=== PATIENT | female | born 1990 | race Caucasian/White ===

== ENCOUNTER 2017-11-03 20:40 | Inpatient (IN) | payer OTHER ==
[2017-11-03 21:20] LABS: APPEARANCE,URINE SLIGHTLY-CLOUDY; BILIRUBIN,URINE NEGATIVE (NEGATIVE); COLOR,URINE YELLOW; GLUCOSE, URINE NEGATIVE (NEGATIVE); KETONES,URINE NEGATIVE (NEGATIVE); LEUKOCYTE ESTERASE,URINE TRACE (NEGATIVE); NITRITE,URINE NEGATIVE (NEGATIVE); PROTEIN,URINE NEGATIVE (NEGATIVE)
[2017-11-03] MEDS ORDERED: MAG HYDROX/AL HYDROX/SIMETH SUSP 30 ML UDCUP PO PRN (21:22)
[2017-11-03] MEDS ORDERED: DINOPROSTONE 10 MG VAGINAL INSERT.SR PV ONE (21:22)
[2017-11-03] MEDS ORDERED: RINGERS SOLUTION,LACTATED 300 ML IV ONE (21:22)
[2017-11-03] MEDS ORDERED: RINGERS SOLUTION,LACTATED 1,000 ML IV PRN (21:22)
[2017-11-03] MEDS ORDERED: ACETAMINOPHEN 325 MG TABLET PO PRN (21:22)
[2017-11-03] MEDS ORDERED: ZOLPIDEM TARTRATE 5 MG TABLET PO PRN (21:22)
[2017-11-03] MEDS ORDERED: DINOPROSTONE 10 MG VAGINAL INSERT.SR ONE (21:39)
[2017-11-03 21:40] LABS: URINE AMPHETAMINES SCREEN NEGATIVE; URINE BARBITURATES SCREEN NEGATIVE; URINE BENZODIAZEPINES SCREEN NEGATIVE; URINE COCAINE SCREEN NEGATIVE; URINE MARIJUANA (THC) SCREEN NEGATIVE; URINE METHADONE SCREEN NEGATIVE; URINE PHENCYCLIDINE SCREEN NEGATIVE
[2017-11-03 21:49] LABS: ABSOLUTE EOSINOPHILS # (AUTO) 0.1 10^3/uL (0.0-0.6); ABSOLUTE LYMPHOCYTES (AUTO) 1.7 10^3/uL (0.5-4.7); ABSOLUTE MONOCYTES (AUTO) 0.6 10^3/uL (0.1-1.4); ABSOLUTE NEUT (AUTO) 8.9 10^3/uL (1.7-8.2); BASOPHILS % (AUTO) 0.2 % (0-2); EOSINOPHILS % (AUTO) 0.7 % (0-6); HEMATOCRIT 33.7 % (36.0-47.0); HEMOGLOBIN 11.1 g/dL (12.0-15.5); LYMPHOCYTES % (AUTO) 15.1 % (13-45); MEAN CORPUSCULAR HEMOGLOBIN 26.3 pg (27.0-33.4); MEAN CORPUSCULAR HGB CONC 32.9 g/dL (32.0-36.0); MEAN CORPUSCULAR VOLUME 80 fl (80-97); MONOCYTES % (AUTO) 5.6 % (3-13); PLATELET COUNT 196 10^3/uL (150-450); RED BLOOD COUNT 4.21 10^6/uL (3.72-5.28); RED CELL DISTRIBUTION WIDTH 15.6 % (11.5-14.0); SEGMENTED NEUTROPHILS % (AUTO) 78.4 % (42-78); TOTAL CELLS COUNTED % (AUTO) 100 %; WHITE BLOOD COUNT 11.4 10^3/uL (4.0-10.5)
[2017-11-04] MEDS ORDERED: ZOLPIDEM TARTRATE 5 MG TABLET ONE (01:20)
--- NOTE | 2017-11-04 07:03 | Admission Physical ---
Datetime Report Generated by CPN: 11/04/2017 07:03 CURRENT ADMISSION Chief Complaint: Scheduled Induction of Labor Indication for Induction: Maternal Diabetes Indication for Induction- Other: On Metformin Admit Impression : Term, Intrauterine ; Induction of Labor Admit Plan: Admit to Unit; Initiate Labor Induction Protocol ALLERGIES Medication Allergies: No Medication Allergies: No Known Allergies (11/03/2017) Latex: No Latex Allergies Food Allergies: none Environmental Allergies: none OBSTETRICAL HISTORY EDC: 11/06/2017 00:00 : 1 Para: 0 Term: 0 : 0 SAB: 0 IAB: 0 Ectopic: 0 Livin Cesareans: 0 VBACs: 0 Multiple Births: 0 Gestational Diabetes: Yes Rh Sensitization: No Incompetent Cervix: No EASTON: No Infertility: No ART Treatment: No Uterine Anomaly: No IUGR: No Hx Previous C/S: No Macrosomia: No Hx Loss/Stillborn: No PIH: No Hx : No Placenta Previa/Abruption: No Depression/PP Depression: No PTL/PROM: No Post Hemorrhage: No Current Procedures: Ultrasound; NST Obstetrical History Comments: G1- current GDM on metformin SEE RECORDS Alcohol: No Marijuana : No Cocaine: No Other Illicit Drugs: No Cigarettes: Never Smoker. [id number] MEDICAL HISTORY Diabetes: Yes Diabetes Type: Gestational Diabetes Blood Transfusion: No Pulmonary Disease (Asthma, TB): No Breast Disease: No Hypertension: No Sprayer Hand Surgery: No Heart Disease: No Hosp/Surgery: Yes Autoimmune Disorder: No Anesthetic Complications: No Kidney Disease: Yes Abnormal Pap Smear: No Neuro/Epilepsy: No Psychiatric Disorders: No Other Medical Diseases: Yes Hepatitis/Liver Disease: No Significant Family History: No Varicosities/Phlebitis: No Trauma/Violence : No Thyroid Dysfunction: No Medical History Comments: hospitalized for kidney stones in 2013, right hip stress fx 2010; GDM-on Metformin; Factor V Leiden INFECTIOUS HISTORY Gonorrhea: No Genital Herpes: No Chlamydia: No Tuberculosis: No Syphilis: No Hepatitis: No HIV/AIDS Exposure: No Rash or Viral Illness: No HPV: No PHYSICAL EXAM General: Normal HEENT: Normal Neurologic: Normal Thyroid: Normal Heart: Normal Lungs: Normal Breast: Normal Back: Normal Abdomen: Normal Genitourinary Exam: Normal Extremities: Normal DTRs: Normal Pelvic Type: Adequate Vital Signs: Reviewed; Within Normal Limits VAGINAL EXAM Dilatation: 2 Effacement: 50 Station: -3 MEMBRANES Pooling: Negative Membranes: Intact FETUS A EGA: 39.5 Monitoring: External US FHR- Baseline: 125 Variability: Moderate 6-25bpm Accelerations: 15X15 FHR Category: Category I Estimated Weight (gm): 3700 Presentation: Vertex PLANS FOR LABOR AND DELIVERY Labor and Delivery: None Pain Management: Medications; Epidural Feeding Preference: Breast Benefit of Breast Feed Discussed: Yes Circumcision: Yes INFORMED CONSENT Signature: with User ID: [email or web address]
--- NOTE | 2017-11-04 10:53 | L&D Progress Notes ---
PROGRESS NOTES Datetime Report Generated by CPN: 11/04/2017 10:53 PROGRESS NOTE Impression: Reassuring Heart Rate Plan: Continue Present Management; Induction Informed Consent Obtained: Vaginal Delivery Vital Signs : Reviewed; Within Normal Limits Comment: Cervidil out, eating and walking in halls, Cat 1 strip, irreg uc's, discussed Pitocin and epidural VAGINAL EXAM Dilatation: 2 Effacement: 50 Station: -3 MEMBRANES Pooling: Negative Membranes: Intact FETUS A Decelerations: None : 39.5 Estimated Weight (gm): 3700 Presentation: Vertex SIGNATURE SIGNATURE: [id number] SIGNATURE: [id number] SIGNATURE: ,[id number] Assignment: Jose Bravo MD Signature: with User ID: [email or web address] : with User ID: [email or web address]
[2017-11-04] MEDS ORDERED: OXYTOCIN/NORMAL SALINE 20 UNIT/1,000 ML RTUINJ IV PRN ×2 (11:47→21:44)
--- NOTE | 2017-11-04 11:50 | L&D Progress Notes ---
PROGRESS NOTES Datetime Report Generated by CPN: 11/04/2017 11:50 PROGRESS NOTE Impression: Normal Progression of Labor; Reassuring Heart Rate Procedures: Sterile Vag Exam Plan: Continue Present Management; Induction; Anticipate Vaginal Delivery Vital Signs : Reviewed Comment: VE = 4-5/80/vtx/-2, bulging BOW, start Pitocin, AROM when head down to 0 station. Plan of care discussed, family at , [facility] epidural FETUS A Monitoring: External US Decelerations: None FHR Category: Category I FETUS C SIGNATURE: [id number] Assignment: Jose Bravo MD Signature: with User ID: [email or web address] : with User ID: [email or web address]
[2017-11-04] MEDS ORDERED: LIDOCAINE 1% INJ-PF (10 MG/ML) 30 ML SDV ONE (11:51)
[2017-11-04] MEDS ORDERED: MISOPROSTOL 0.2 MG TABLET ONE (11:51)
[2017-11-04] MEDS ORDERED: PENICILLIN G-K 5 MILLION UNIT VIAL ONE ×3 (11:52→20:21)
[2017-11-04] MEDS ORDERED: OXYTOCIN/NORMAL SALINE 20 UNIT/1,000 ML RTUINJ ONE ×2 (11:52→12:10)
[2017-11-04] MEDS ORDERED: LIDOCAINE 1.5%/EPINEPHRINE INJ-PF 30 ML SDV ONE (16:30)
[2017-11-04] MEDS ORDERED: EPHEDRINE SULFATE INJ 50 MG/1 ML AMPULE ONE (16:30)
[2017-11-04] MEDS ORDERED: FENTANYL/BUPIVACAINE/NS/PF 300 MCG/150 ML RTUINJ EPI ONE (16:30)
[2017-11-04] MEDS ORDERED: BUPIVACAINE HCL 0.25 % INJ/PF (2.5 MG/1 ML) 30 ML VIAL ONE (16:30)
[2017-11-04] MEDS ORDERED: DIBUCAINE 1% OINTMENT 28 GM TP PRN (21:44)
[2017-11-04] MEDS ORDERED: PROMETHAZINE HCL INJ 25 MG/1 ML VIAL IV PRN (21:44)
[2017-11-04] MEDS ORDERED: GLYCERIN/WITCH HAZEL LEAF 1 EACH MED..PAD TP PRN (21:44)
[2017-11-04] MEDS ORDERED: PSEUDOEPHEDRINE HCL 30 MG TABLET PO PRN (21:44)
[2017-11-04] MEDS ORDERED: PROMETHAZINE HCL 25 MG SUPP.RECT PR PRN (21:44)
[2017-11-04] MEDS ORDERED: BENZOCAINE/MENTHOL AEROSOL SPRAY 56 ML TOP PRN (21:44)
[2017-11-04] MEDS ORDERED: ACETAMINOPHEN WITH CODEINE #3 TABLET PO PRN (21:44)
[2017-11-04] MEDS ORDERED: ACETAMINOPHEN 650 MG SUPP.RECT PR PRN (21:44)
[2017-11-04] MEDS ORDERED: MAGNESIUM HYDROXIDE SUSP 30 ML UDCUP PO PRN (21:44)
[2017-11-04] MEDS ORDERED: PROMETHAZINE HCL 25 MG TABLET PO PRN (21:44)
[2017-11-04] MEDS ORDERED: ZOLPIDEM TARTRATE 5 MG TABLET PO PRN (21:44)
[2017-11-04] MEDS ORDERED: NA PHOS,M-B/NA PHOS,DI-BA (ADULT) 133 ML ENEMA PR PRN (21:44)
[2017-11-04] MEDS ORDERED: DIPHENHYDRAMINE HCL 25 MG CAPSULE PO PRN (21:44)
[2017-11-04] MEDS ORDERED: MEASLES,MUMPS&RUBELLA VACC/PF 0.5 ML VIAL SUBCUT PRN (21:44)
[2017-11-04] MEDS ORDERED: DIPH/PERTUSS(ACELL)/TETANUS VAC/PF 0.5 ML SYR (>=10YO) IM PRN (21:44)
--- NOTE | 2017-11-04 21:47 | PDOC DELIVERY SUMMARY ---
Delivery Summary - Maternal Ruptured Membranes: SROM Fluids: Meconium Stained - Delivery Labor: Induction Presentation: Vertex Uterine Contraction Monitoring: External Support Person Present: Yes
--- NOTE | 2017-11-04 22:11 | Warning Signs in Babies ---
VOD Warning Signs Datetime Report Generated by [facility]: 11/04/2017 22:11 VOD#608 -Warning Signs in Babies: Viewed with Parent(s)/Family (10/22/2017 12:54:Indira Mahoney RN)
[2017-11-04] MEDS ORDERED: ENOXAPARIN SODIUM INJ 40 MG/0.4 ML DISP.SYRIN SUBCUT ONE (23:30)
--- NOTE | 2017-11-04 23:59 | Delivery Summary ---
Del Sum A-C Datetime Report Generated by CPN: 11/04/2017 23:59 DELIVERY PERSONNEL DELIVERY PERSONNEL: [id number] Delivery Doctor:: Jose Bravo MD Labor and Delivery Nurse:: Indira Mahoney RN Nursery Nurse:: OPAL Lew Care Services Manager/ADMINISTRATIVE ASSOCIATE: Jeannie Gates ST Care Services Manager/ADMINISTRATIVE ASSOCIATE: Lalita Detom, ICD 9 CODER MATERNAL INFORMATION Delivery Anesthesia: Epidural Medications After Delivery: Pitocin Bolus-Please Comment; Pitocin Drip 20 Units/1000ml NSS Maternal Complications: None LABOR SUMMARY EDC: 11/06/2017 00:00 No. Babies in Womb: 1 Attempted: No Labor Anesthesia: Epidural LABOR INFORMATION Reason for Induction: Maternal Diabetes Onset of Labor: 11/04/2017 11:42 Complete Dilatation: 11/04/2017 20:06 Cervical Ripening Agents: Cervidil Oxytocin: Induction Group B Beta Strep: POSITIVE Antibiotics # of Doses: 4 Antibiotics Time of Last Dose: 2022 Name of Antibiotic Given: PENICILLIN G Steroids Given: None Reason Steroids Not Administered: Not Applicable MEMBRANES Membranes Rupture Method: Artificial Rupture of Membranes: 11/04/2017 18:32 Length of Rupture (hr): 3.05 Amniotic Fluid Color: Clear Amniotic Fluid Amount: Copious Amniotic Fluid Odor: None STAGES OF LABOR Stage 1 hr: 8 Stage 1 min: 24 Stage 2 hr: 1 Stage 2 min: 29 Stage 3 hr: 0 Stage 3 min: 3 Total Time in Labor hr: 9 Total Time in Labor min: 56 VAGINAL DELIVERY Episiotomy: None Laceration #1: Vaginal Laceration Extension #1: N/A Laceration Repair: Not Applicable Laceration Repair Note: small laceration no repair needed Sponge Count Correct: N/A Sharps Count Correct: N/A CSECTION DELIVERY Primary Indication: N/A Secondary Indication: N/A CSection Incidence: N/A Labor: N/A Elective: N/A CSection Incision: N/A BABY A INFORMATION Infant Delivery Date/Time: 11/04/2017 21:35 Method of Delivery: Vaginal Born in Route : No : N/A Forceps: N/A Vacuum Extraction: N/A Shoulder Dystocia : No PRESENTATION/POSITION BABY A Presentation: Cephalic Cephalic Presentation: Vertex Breech Presentation: N/A PLACENTA INFORMATION BABY A Placenta Delivery Time : 11/04/2017 21:38 Placenta Method of Delivery: Spontaneous Placenta Status: Delivered SCORES BABY A Heart Rate 1 min: >100 bpm Resp Effort 1 min: Slow, Irregular Reflex Irritability 1 min: Cough or Sneeze or Pulls Away Muscle Tone 1 min: Active Motion Color 1 min: Blue/Pale SCORE 1 MIN: 7 Heart Rate 5 min: >100 bpm Resp Effort 5 min: Good Cry Reflex Irritability 5 min: Cough or Sneeze or Pulls Away Muscle Tone 5 min: Active Motion Color 5 min: Body [place], Extremities Blue SCORE 5 MIN: 9 INFANT INFORMATION BABY A Gestational Age at Delivery: 39.5 Gestational Status: Full Term- 39- 40.6 Weeks Infant Outcome : Liveborn Infant Condition : Stable Sex: Male IDENTIFICATION BABY A Infant Verification Date/Time: 11/04/2017 21:49 ID Band Number: [id number] Mother's Name Verified: Yes RN Verifying Infant: SWalt Dewitt, RNC Additional Verifying Personnel: US Lisa WEIGHT/LENGTH BABY A Birthweight (gm): 3210 Infant Weight (lb): 7 Infant Weight (oz): 1 Length (in): 20.50 Length (cm): 52.07 CORD INFORMATION BABY A No. Cord Vessels: 3 Nuchal Cord : Around Neck x1, Loose ASSESSMENT BABY A Infant Complications: Multiple Late Decels; Meconium Infant Complications- Other: terminal meconium noted after delivery Physical Findings at Delivery: Within Normal Limits Infant Respirations: Appears Normal Skin to Skin: Yes Transferred To: Nursery BABY B INFORMATION : N/A SIGNATURES Signature: with User ID: [email or web address]
[2017-11-05] MEDS: IBUPROFEN 800 MG TABLET PO SCH ×4 (02:10→21:54)
[2017-11-05] MEDS: FAMOTIDINE 20 MG TABLET PO SCH ×3 (02:10→21:56)
[2017-11-05 07:40] LABS: HEMATOCRIT 31.9 % (36.0-47.0); HEMOGLOBIN 10.5 g/dL (12.0-15.5); MEAN CORPUSCULAR HEMOGLOBIN 26.3 pg (27.0-33.4); MEAN CORPUSCULAR HGB CONC 32.8 g/dL (32.0-36.0); MEAN CORPUSCULAR VOLUME 80 fl (80-97); PLATELET COUNT 195 10^3/uL (150-450); RED BLOOD COUNT 3.98 10^6/uL (3.72-5.28); RED CELL DISTRIBUTION WIDTH 15.7 % (11.5-14.0); WHITE BLOOD COUNT 18.7 10^3/uL (4.0-10.5)
[2017-11-05 07:50] LABS: INTERNATIONAL RATION (INR) 0.98; PROTHROMBIN TIME 13.5 SEC (11.4-15.4)
[2017-11-05 07:51] LABS: PARTIAL THROMBOPLASTIN TIME 28.5 SEC (23.5-35.8)
[2017-11-05] MEDS: ENOXAPARIN SODIUM INJ 40 MG/0.4 ML DISP.SYRIN SUBCUT SCH (10:23)
[2017-11-05] MEDS: FERROUS SULFATE 325 MG TABLET PO SCH ×2 (10:23→17:38)
[2017-11-05] MEDS: SENNOSIDES/DOCUSATE 8.6-50 MG 1 EACH TABLET PO SCH (10:24)
[2017-11-05] MEDS: DOCUSATE SODIUM 100 MG CAPSULE PO SCH ×2 (10:24→17:38)
[2017-11-05] MEDS: PRENATAL VITAMIN W DHA CAPSULE PO SCH (10:24)
--- NOTE | 2017-11-05 11:50 | PDOC PROGRESS REPORT ---
Subjective-OB Progress Note for:: 11/05/17 Subjective: Pt doing well, no concerns. She reports light bleeding, voiding without difficulty, regular diet. Physical Exam (OB) Vital Signs: Temp Pulse Resp BP Pulse Ox 97.8 F 81 22 H 113/70 97 11/05/17 08:14 11/05/17 08:14 11/05/17 08:14 11/05/17 08:14 11/05/17 08:14 Intake & Output 11/04/17 11/05/17 11/06/17 06:59 06:59 06:59 Weight 93.44 kg - PIH/Pre-Eclampsia Clonus: Negative Headache: Absent Epigastric Pain: No Visual Changes: No - Abdomen Description: Tender, Soft Hernia Present: No Fundal Description: Firm, Midline Fundal Height: u/u - u/2 Objective-Diagnostic Laboratory: 11/05/17 07:05 11/05/17 07:05 11/05/17 11/05/17 11/05/17 07:05 07:05 07:05 WBC 18.7 H RBC 3.98 Hgb 10.5 L Hct 31.9 L MCV 80 MCH 26.3 L MCHC 32.8 RDW 15.7 H Plt Count 195 Creatinine 0.58 Est GFR ( Amer) > 60 Est GFR (Non-Af Amer) > 60 Blood Type A NEGATIVE Assessment and Plan(PN) - Assessment and Plan (1) Vaginal delivery Is this a current diagnosis for this admission?: Yes - Time Spent with Patient Time with patient: Less than 15 minutes Medications reviewed and adjusted accordingly: Yes - Disposition Anticipated Discharge: Home Within: within 24 hours
[2017-11-06] MEDS: IBUPROFEN 800 MG TABLET PO SCH (06:03)
[2017-11-06 06:58] LABS: ABSOLUTE EOSINOPHILS # (AUTO) 0.2 10^3/uL (0.0-0.6); ABSOLUTE LYMPHOCYTES (AUTO) 1.4 10^3/uL (0.5-4.7); ABSOLUTE MONOCYTES (AUTO) 0.7 10^3/uL (0.1-1.4); ABSOLUTE NEUT (AUTO) 11.3 10^3/uL (1.7-8.2); BASOPHILS % (AUTO) 0.3 % (0-2); EOSINOPHILS % (AUTO) 1.5 % (0-6); HEMATOCRIT 31.8 % (36.0-47.0); HEMOGLOBIN 10.3 g/dL (12.0-15.5); LYMPHOCYTES % (AUTO) 10.5 % (13-45); MEAN CORPUSCULAR HEMOGLOBIN 26.5 pg (27.0-33.4); MEAN CORPUSCULAR HGB CONC 32.5 g/dL (32.0-36.0); MEAN CORPUSCULAR VOLUME 82 fl (80-97); MONOCYTES % (AUTO) 5.4 % (3-13); PLATELET COUNT 172 10^3/uL (150-450); RED CELL DISTRIBUTION WIDTH 15.9 % (11.5-14.0); SEGMENTED NEUTROPHILS % (AUTO) 82.3 % (42-78); TOTAL CELLS COUNTED % (AUTO) 100 %; WHITE BLOOD COUNT 13.7 10^3/uL (4.0-10.5)
[2017-11-06 08:39] VITALS: BP 107/58
--- NOTE | 2017-11-06 09:42 | PDOC DISCHARGE SUMMARY ---
Final Diagnosis Discharge Date: 11/06/17 - Final Diagnosis (1) Vaginal delivery Is this a current diagnosis for this admission?: Yes Discharge Data - Discharge Medication Prescriptions: Ibuprofen [Motrin 800 mg Tablet] 800 mg PO Q8 #60 tablet Home Medications: Vit/Iron Fum/Folic AC [ Tablet] 1 tab PO DAILY 10/22/17 Ibuprofen [Motrin 800 mg Tablet] 800 mg PO Q8 #60 tablet 11/06/17 Procedures: NST Intrapartum Procedure(s): Spontaneous Vaginal Delivery - Diagnosis Test Laboratory: Temp Pulse Resp BP Pulse Ox 97.9 F 80 18 107/58 L 98 11/06/17 07:45 11/06/17 07:45 11/06/17 07:45 11/06/17 07:45 11/06/17 07:45 11/03/17 11/03/17 11/05/17 20:50 21:27 07:05 RBC 4.21 3.98 Hgb 11.1 L 10.5 L Hct 33.7 L 31.9 L Urine Opiates Screen NEGATIVE 11/06/17 06:22 RBC 3.90 Hgb 10.3 L Hct 31.8 L Urine Opiates Screen - Discharge information/Instructions Discharge Activity: Balance Activity w/Rest, Pelvic Rest Discharge Diet: Regular Disposition: HOME, SELF-CARE Follow up with: [facility] in: 4, Weeks
[2017-11-06] MEDS: FERROUS SULFATE 325 MG TABLET PO SCH (10:36)
[2017-11-06] MEDS: PRENATAL VITAMIN W DHA CAPSULE PO SCH (10:36)
[2017-11-06] MEDS: FAMOTIDINE 20 MG TABLET PO SCH (10:36)
[2017-11-06] MEDS: SENNOSIDES/DOCUSATE 8.6-50 MG 1 EACH TABLET PO SCH (10:36)
[2017-11-06] MEDS: DOCUSATE SODIUM 100 MG CAPSULE PO SCH (10:37)
[2017-11-06] MEDS: ENOXAPARIN SODIUM INJ 40 MG/0.4 ML DISP.SYRIN SUBCUT SCH (10:37)
== END 2017-11-06 14:50 | disposition home or self-care (01) | DRG 775 ==
LOC: LR 20:40 → 2S 11-05 00:04
PROVIDERS: ADMIT Obstetrics & Gynecology; ATTEND Obstetrics & Gynecology
PROC: 4A1HXCZ Monitoring of Products of Conception, Cardiac Rate, External Approach (ICD-10-PCS; 2017-11-03)
PROC: 10E0XZZ Delivery of Products of Conception, External Approach (ICD-10-PCS; principal; 2017-11-04)
PROC: 3E0P7VZ Introduction of Hormone into Female Reproductive, Via Natural or Artificial Opening (ICD-10-PCS; 2017-11-04)
PROC: 3E033VJ Introduction of Other Hormone into Peripheral Vein, Percutaneous Approach (ICD-10-PCS; 2017-11-04)
PROC: 10907ZC Drainage of Amniotic Fluid, Therapeutic from Products of Conception, Via Natural or Artificial Opening (ICD-10-PCS; 2017-11-04)
PROC: 3E0234Z Introduction of Serum, Toxoid and Vaccine into Muscle, Percutaneous Approach (ICD-10-PCS; 2017-11-06)
DX: O99.824 Streptococcus B carrier state complicating childbirth (principal); D68.51 Activated protein C resistance; O26.893 Other specified pregnancy related conditions, third trimester; O99.12 Other diseases of the blood and blood-forming organs and certain disorders involving the immune mechanism complicating childbirth; O77.0 Labor and delivery complicated by meconium in amniotic fluid; O24.425 Gestational diabetes mellitus in childbirth, controlled by oral hypoglycemic drugs; Z67.11 Type A blood, Rh negative; Z3A.39 39 weeks gestation of pregnancy; Z37.0 Single live birth
CPT/HCPCS: 36415; 80307; 81005; 82565; 82962; 85025; 85027; 85461; 85610; 85730; 86592; 86850; 86900; 86901; 94760; J1650; J2540; J2590; J2790; J3010; J3490

== ENCOUNTER 2018-02-06 19:34 | Emergency (ER) | payer OTHER ==
--- NOTE | 2018-02-06 20:00 | ER Document Report ---
ED Medical Screen (RME) - General Chief Complaint: Possible Kidney Stone Stated Complaint: FLANK PAIN Time Seen by Provider: 02/06/18 19:58 Mode of Arrival: Ambulatory Information source: Patient TRAVEL OUTSIDE OF THE [place] IN LAST 30 DAYS: No - HPI Patient complains to provider of: kidney stone Onset: Other - pt was diagnosed with 8 mm renal stone by U/S several days ago. Was told to go to ED for further evaluation and possible removal - Related Data Allergies/Adverse Reactions: No Known Allergies Allergy (Verified 02/06/18 19:36) Past Medical History - Social History Frequency of alcohol use: Rare Renal/ Medical History: Denies: Hx Peritoneal Dialysis Physical Exam - Vital signs Vitals: Temp Pulse Resp BP Pulse Ox 98.6 F 69 16 116/75 99 02/06/18 19:41 02/06/18 19:41 02/06/18 19:41 02/06/18 19:41 02/06/18 19:41 Course - Vital Signs Vital signs: Temp Pulse Resp BP Pulse Ox 98.6 F 69 16 116/75 99 02/06/18 19:41 02/06/18 19:41 02/06/18 19:41 02/06/18 19:41 02/06/18 19:41 Doctor's Discharge - Discharge Referrals: JOHNATHAN DE LEON PA-C [Primary Care Provider] - Follow up as needed
[2018-02-06 20:33] LABS: APPEARANCE,URINE SLIGHTLY-CLOUDY; BILIRUBIN,URINE NEGATIVE (NEGATIVE); COLOR,URINE YELLOW; GLUCOSE, URINE NEGATIVE (NEGATIVE); KETONES,URINE NEGATIVE (NEGATIVE); LEUKOCYTE ESTERASE,URINE TRACE (NEGATIVE); NITRITE,URINE NEGATIVE (NEGATIVE); PROTEIN,URINE NEGATIVE (NEGATIVE); URINE SPECIFIC GRAVITY 1.016; UROBILINOGEN,URINE NEGATIVE mg/dL (<2.0)
--- NOTE | 2018-02-06 21:27 | ER Document Report ---
ED GI/ - General Chief Complaint: Possible Kidney Stone Stated Complaint: FLANK PAIN Time Seen by Provider: 02/06/18 19:58 Mode of Arrival: Ambulatory Notes: This is a 27-year-old female patient was sent to the emergency department for a primary care doctor for an ultrasound revealed possible kidney stone. Patient has a history of kidney stones. Complaining of pain in the right flank and radiating to the right lower quadrant. Blood in her urine. By the time she presented to the emergency department pain is fairly well controlled. Denies any nausea vomiting. Has a history of kidney stone about 4 years ago. Not but is breast-feeding. TRAVEL OUTSIDE OF THE [place] IN LAST 30 DAYS: No - HPI Patient complains to provider of: Abdominal pain, Flank pain, Hematuria - Related Data Allergies/Adverse Reactions: No Known Allergies Allergy (Verified 02/06/18 19:36) Past Medical History - General Information source: Patient - Social History Smoking Status: Never Smoker Frequency of alcohol use: Rare Drug Abuse: None Lives with: Spouse/Significant other Family History: Reviewed & Not Pertinent Patient has suicidal ideation: No Patient has homicidal ideation: No Renal/ Medical History: Reports: Hx Kidney Stones. Denies: Hx Peritoneal Dialysis Review of Systems - Review of Systems Notes: Constitutional: denies: Chills, Diaphoresis, Fever, Malaise, Weakness EENT: denies: Eye discharge, Blurred vision, Tearing, Double vision, Nose congestion, Nose discharge, Throat swelling, Mouth pain Cardiovascular: denies: Palpitations, Heart racing, Orthopnea, Dyspnea, Chest pain Respiratory: denies: Cough, Hurts to breathe, Wheezing, Shortness of breath Gastrointestinal: denies: Abdominal pain, Diarrhea, Nausea, Vomiting, Black stools, bright red blood in stool Genitourinary: denies: Burning, Dysuria, Discharge, Frequency,. Patient does complain of flank pain and hematuria Musculoskeletal: denies: Joint pain, Joint swelling, Muscle pain, Muscle stiffness, back pain Hematologic/Lymphatic: denies: Anemia, Easy bleeding, Easy bruising, Blood clots Neurological/Psychological: denies: Confusion, Dementia, Depression, Loss of consciousness Skin: No lesions, no masses, no skin breakdown, no abscesses Physical Exam - Vital signs Vitals: Temp Pulse Resp BP Pulse Ox 98.6 F 69 16 116/75 99 02/06/18 19:41 10/12/18 19:41 02/06/18 19:41 02/06/18 19:41 02/06/18 19:41 Interpretation: Normal - General General appearance: Appears well, Alert - HEENT Head: Normocephalic, Atraumatic Eyes: Normal Pupils: PERRL - Respiratory Respiratory status: No respiratory distress Chest status: Nontender Breath sounds: Normal Chest palpation: Normal - Cardiovascular Rhythm: Regular Heart sounds: Normal auscultation Murmur: No - Abdominal Inspection: Normal Distension: No distension Bowel sounds: Normal Tenderness: Nontender Organomegaly: No organomegaly - Back Back: Normal, Nontender - Extremities General upper extremity: Normal inspection, Nontender, Normal color, Normal ROM , Normal temperature General lower extremity: Normal inspection, Nontender, Normal color, Normal ROM , Normal temperature, Normal weight bearing. No: Mahogany's sign - Neurological Neuro grossly intact: Yes Cognition: Normal Orientation: AAOx4 [place] Coma Scale Eye Opening: Spontaneous Gely Coma Scale Verbal: Oriented [place] Coma Scale Motor: Obeys Commands Gely Coma Scale Total: 15 Speech: Normal Motor strength normal: LUE, RUE, LLE, RLE Sensory: Normal - Psychological Associated symptoms: Normal affect, Normal mood - Skin Skin Temperature: Warm Skin Moisture: Dry Skin Color: Normal Course - Re-evaluation Re-evalutation: 02/07/18 00:12 This is a very well-appearing female in no acute distress who had a CT scan which shows possible stone in her bladder. Is asymptomatic at this time. Does not require any further treatment. I have advised her in the future to be very careful about agreeing to CT scans as she has a known history of kidney stones and every time she gets a kidney stone she does not need a CT scan. Will DC at this time in stable condition. 02/07/18 00:13 Laboratory 02/06/18 20:02 Urine Color YELLOW Urine Appearance SLIGHTLY-CLOUDY Urine pH 5.0 Ur Specific [place] 1.016 Urine Protein NEGATIVE Urine Glucose (UA) NEGATIVE Urine Ketones NEGATIVE Urine Blood MODERATE H Urine Nitrite NEGATIVE Urine Bilirubin NEGATIVE Urine Urobilinogen NEGATIVE Ur Leukocyte Esterase TRACE H Urine WBC (Auto) 16 Urine RBC (Auto) 11 Squamous Epi Cells Auto 7 Urine Mucus (Auto) RARE Urine Ascorbic Acid NEGATIVE Urine HCG, Qual NEGATIVE Limited or Localized CT 02/06/18 19:58 IMPRESSION: 1. The RIGHT kidney reveals moderate to severe hydronephrosis and hydroureter secondary to calculus present within the dependent bladder versus ureterovesical junction, the calculus measures 3 x 2 mm. TECHNICAL DOCUMENTATION: Quality ID # 436: Final reports with documentation of one or more dose reduction techniques (e.g., Automated exposure control, adjustment of the mA and/or kV according to patient size, use of iterative reconstruction technique) 2010 [employer]- All Rights Reserved - Vital Signs Vital signs: Temp Pulse Resp BP Pulse Ox 98.3 F 58 L 15 114/64 99 02/06/18 22:25 02/06/18 22:25 02/06/18 22:25 02/06/18 22:25 02/06/18 22:25 - Laboratory Laboratory results interpreted by me: 02/06/18 20:02 Urine Blood MODERATE H Ur Leukocyte Esterase TRACE H Discharge - Discharge Clinical Impression: Kidney stone on right side Condition: Good Disposition: HOME, SELF-CARE Instructions: Kidney Stone ([facility]) Additional Instructions: In the event that you develop any worsening symptoms or concerns please follow- up for repeat evaluation. There does not appear to be any infection however if you develop fever, chills, sweats or other symptoms please return immediately. Referrals: JOHNATHAN DE LEON PA-C [Primary Care Provider] - Follow up as needed
--- NOTE | 2018-02-06 21:38 | RADIOLOGY REPORT (SQ) ---
EXAM DESCRIPTION: CT ABDOMEN WITHOUT IV CONTRAST COMPLETED DATE/TME: 02/06/2018 19:58 CLINICAL HISTORY: 27 years, Female, R flank pain COMPARISON: None. TECHNIQUE: CT of the abdomen and pelvis was performed without intravenous or oral contrast. Multiplanar reformatted images were provided. This exam was performed according to our departmental dose optimization program which includes use of automated exposure control, adjustment of the mA and/or kV according to patient size and/or use of iterative reconstruction technique. Images stored on PACS. All CT scanners at this facility use dose modulation, iterative reconstruction, and/or weight based dosing when appropriate to reduce radiation dose to as low as reasonably achievable (ALARA). [facility]: Dose Right [facility]: CareDose [facility]: Dose Right [facility]: Teradose 4D [facility]: [employer] LIMITATIONS: None. FINDINGS: Evaluation of solid organ pathology is limited secondary to lack of intravenous contrast. Within these limitations, the following observations are made. Chest: Evaluation through the lung bases reveals no focal opacity, pleural effusion or pneumothorax. Heart size is within normal limits. No pericardial effusion. Abdomen and pelvis: The liver, gallbladder, pancreas, spleen, LEFT kidney and bilateral adrenal glands are within normal limits. The RIGHT kidney reveals moderate to severe hydronephrosis and hydroureter secondary to calculus present within the dependent bladder versus ureterovesical junction, the calculus measures 3 x 2 mm. The vessels are normal in caliber. No abdominopelvic lymph nodes are noted to be pathologically enlarged by CT measurement criteria. The bowel is within normal limits without abnormal bowel wall thickness or bowel dilation. No free air. No free abdominopelvic fluid collections. The appendix is nonvisualized. The osseous structures are within normal limits. IMPRESSION: 1. The RIGHT kidney reveals moderate to severe hydronephrosis and hydroureter secondary to calculus present within the dependent bladder versus ureterovesical junction, the calculus measures 3 x 2 mm. TECHNICAL DOCUMENTATION: Quality ID # 436: Final reports with documentation of one or more dose reduction techniques (e.g., Automated exposure control, adjustment of the mA and/or kV according to patient size, use of iterative reconstruction technique) 2010 [employer]- All Rights Reserved
[2018-02-06 22:27] VITALS: BP 114/64
== END 2018-02-06 22:27 | disposition home or self-care (01) ==
LOC: ER 19:34
DX: N13.2 Hydronephrosis with renal and ureteral calculous obstruction (principal); R31.9 Hematuria, unspecified; R10.9 Unspecified abdominal pain
CPT/HCPCS: 76380; 81001; 81025; 99284

== ENCOUNTER 2019-11-08 06:34 | Inpatient (IN) | payer OTHER ==
[2019-11-08] MEDS ORDERED: OXYTOCIN/0.9 % SODIUM CHLORIDE 30 UNIT/500 ML RTUINJ IV PRN ×2 (06:55→15:21)
[2019-11-08] MEDS ORDERED: OXYTOCIN 10 UNIT/ML VIAL ONE (07:19)
[2019-11-08] MEDS ORDERED: OXYTOCIN/0.9 % SODIUM CHLORIDE 30 UNIT/500 ML RTUINJ ONE (07:19)
[2019-11-08] MEDS ORDERED: LIDOCAINE 1% INJ-PF (10 MG/ML) 30 ML SDV ONE (07:19)
[2019-11-08] MEDS ORDERED: MISOPROSTOL 0.2 MG TABLET ONE (07:19)
[2019-11-08] MEDS ORDERED: RINGERS SOLUTION,LACTATED 1,000 ML IV ONE (07:20)
[2019-11-08] MEDS ORDERED: EPHEDRINE SULFATE INJ 50 MG/1 ML AMPULE ONE (08:04)
[2019-11-08] MEDS ORDERED: FENTANYL/BUPIVACAINE/NS/PF 300 MCG/150 ML RTUINJ EPI ONE (08:04)
[2019-11-08] MEDS ORDERED: BUPIVACAINE HCL 0.25 % INJ/PF (2.5 MG/1 ML) 30 ML VIAL ONE (08:05)
[2019-11-08 08:09] LABS: ABSOLUTE EOSINOPHILS # (AUTO) 0.1 10^3/uL (0.0-0.6); ABSOLUTE LYMPHOCYTES (AUTO) 1.8 10^3/uL (0.5-4.7); ABSOLUTE MONOCYTES (AUTO) 0.5 10^3/uL (0.1-1.4); ABSOLUTE NEUT (AUTO) 7.4 10^3/uL (1.7-8.2); BASOPHILS % (AUTO) 0.4 % (0-2); EOSINOPHILS % (AUTO) 0.8 % (0-6); HEMATOCRIT 31.3 % (36.0-47.0); HEMOGLOBIN 9.9 g/dL (12.0-15.5); MEAN CORPUSCULAR HEMOGLOBIN 22.9 pg (27.0-33.4); MEAN CORPUSCULAR HGB CONC 31.7 g/dL (32.0-36.0); MEAN CORPUSCULAR VOLUME 72 fl (80-97); MONOCYTES % (AUTO) 5.3 % (3-13); PLATELET COUNT 169 10^3/uL (150-450); RED BLOOD COUNT 4.33 10^6/uL (3.72-5.28); RED CELL DISTRIBUTION WIDTH 16.1 % (11.5-14.0); SEGMENTED NEUTROPHILS % (AUTO) 75.5 % (42-78); TOTAL CELLS COUNTED % (AUTO) 100 %; WHITE BLOOD COUNT 9.8 10^3/uL (4.0-10.5)
[2019-11-08] MEDS: RINGERS SOLUTION,LACTATED 1,000 ML IV PRN ×2 (08:15→11:28)
--- NOTE | 2019-11-08 08:15 | Admission Physical ---
Datetime Report Generated by CPN: 11/08/2019 08:15 CURRENT ADMISSION Chief Complaint: Scheduled Induction of Labor Indication for Induction: Maternal Diabetes Admit Impression : Term, Intrauterine ; Induction of Labor Admit Plan: Admit to Unit; Initiate Labor Induction Protocol ALLERGIES Medication Allergies: No Known Allergies (11/08/2019) OBSTETRICAL HISTORY EDC: 11/09/2019 00:00 : 2 Para: 1 Livin Gestational Diabetes: Yes Rh Sensitization: No Incompetent Cervix: No EASTON: No Infertility: No ART Treatment: No Uterine Anomaly: No IUGR: No Hx Previous C/S: No Macrosomia: No Hx Loss/Stillborn: No PIH: No Hx : No Placenta Previa/Abruption: No Depression/PP Depression: Yes PTL/PROM: No Post Hemorrhage: No Current Procedures: Ultrasound; NST Obstetrical History Comments: G1: 01/2018 39.5 male- terminal mec GDM G2: current: GDM-glyburide stopped, poly, needs rhogam SEE RECORDS Alcohol: Yes Alcohol Frequency: Occasional Advised to Stop: Yes Marijuana : No Cocaine: No Other Illicit Drugs: No Cigarettes: Never Smoker. 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 Heart Disease: No Hosp/Surgery: Yes Autoimmune Disorder: No Anesthetic Complications: No Kidney Disease: Yes Abnormal Pap Smear: No Neuro/Epilepsy: No Psychiatric Disorders: No Other Medical Diseases: No Hepatitis/Liver Disease: No Significant Family History: No Varicosities/Phlebitis: No Trauma/Violence : No Thyroid Dysfunction: No Medical History Comments: Factor V Leiden Heterozygous- ASA stopped at 36 wks- lovenox needed 6 weeks PP kidney stone, hip injury, childbith x1 INFECTIOUS HISTORY Gonorrhea: No Genital Herpes: No Chlamydia: No Tuberculosis: No Syphilis: No Hepatitis: No HIV/AIDS Exposure: No Rash or Viral Illness: No HPV: No PHYSICAL EXAM General: Normal HEENT: Normal Neurologic: Normal Thyroid: Normal Heart: Normal Lungs: Normal Breast: Normal Back: Normal Abdomen: Normal Genitourinary Exam: Normal Extremities: Normal DTRs: Normal Pelvic Type: Adequate Vital Signs: Reviewed; Within Normal Limits VAGINAL EXAM Dilatation: 6 Effacement: 80 Station: -2 Contraction Comments: irregular MEMBRANES Membranes: Intact FETUS A EGA: 39.6 Monitoring: External US FHR- Baseline: 135 Variability: Moderate 6-25bpm Accelerations: 15X15 Decelerations: None FHR Category: Category I Presentation: Vertex Admit Comment: at 39.6 wks EGA for IOL d/t A1GDM -Admit to LDR -NPO and IVFs -GBS negative -Desires epidural. Will get that now, break her water once comfortable. Pitocin as needed -Hx of , anticipate PLANS FOR LABOR AND DELIVERY Labor and Delivery: None Pain Management: Epidural Feeding Preference: Breast Benefit of Breast Feed Discussed: Yes Circumcision: N/A INFORMED CONSENT Informed Consent Obtained: Vaginal Delivery; Risks, Benefits and Alternatives Discussed Signature: with User ID: [email or web address] : with User ID: [email or web address]
[2019-11-08 08:41] LABS: APPEARANCE,URINE CLOUDY; BILIRUBIN,URINE NEGATIVE (NEGATIVE); COLOR,URINE YELLOW; GLUCOSE, URINE NEGATIVE (NEGATIVE); KETONES,URINE NEGATIVE (NEGATIVE); LEUKOCYTE ESTERASE,URINE LARGE (NEGATIVE); NITRITE,URINE NEGATIVE (NEGATIVE); PROTEIN,URINE NEGATIVE (NEGATIVE); URINE SPECIFIC GRAVITY 1.017; UROBILINOGEN,URINE NEGATIVE mg/dL (<2.0)
[2019-11-08 09:11] LABS: URINE AMPHETAMINES SCREEN NEGATIVE; URINE BARBITURATES SCREEN NEGATIVE; URINE BENZODIAZEPINES SCREEN NEGATIVE; URINE COCAINE SCREEN NEGATIVE; URINE MARIJUANA (THC) SCREEN NEGATIVE; URINE METHADONE SCREEN NEGATIVE; URINE PHENCYCLIDINE SCREEN NEGATIVE
--- NOTE | 2019-11-08 09:51 | Warning Signs in Babies ---
VOD Warning Signs Datetime Report Generated by [facility]: 11/08/2019 09:50 VOD#608 -Warning Signs in Babies: Viewed with Parent(s)/Family (11/08/2019 05:12:Natalie Dong RN)
--- NOTE | 2019-11-08 10:13 | L&D Progress Notes ---
PROGRESS NOTES Datetime Report Generated by CPN: 11/08/2019 10:13 PROGRESS NOTE Impression: Reassuring Heart Rate Plan: Continue Present Management Informed Consent Obtained: Vaginal Delivery; Risks, Benefits and Alternatives Discussed Vital Signs : Reviewed; Within Normal Limits Comment: Sitting up in bed, AROM by Dr. Carpenter earlier, large amount of fluid, epidural in place, ireg uc's, Cat 1 strip Plan: anticipate VAGINAL EXAM Dilatation: 6 Effacement: 80 Station: -2 Contractions: irregular LAST VAGINAL EXAM-NURSING Nursing Exam Dilitation: 6.0 Nursing Exam Effacement: 80 Nursing Exam Station: -2 MEMBRANES Membranes: Ruptured FETUS A FHR Category: Category I : 39.6 Presentation: Vertex SIGNATURE SIGNATURE: [id number] Assignment: Teresa Carpenter MD Signature: with User ID: [place] : with User ID: Enid
--- NOTE | 2019-11-08 12:57 | L&D Progress Notes ---
PROGRESS NOTES Datetime Report Generated by CPN: 11/08/2019 12:56 PROGRESS NOTE Impression: Reassuring Heart Rate Plan: Continue Present Management Informed Consent Obtained: Vaginal Delivery; Risks, Benefits and Alternatives Discussed Vital Signs : Reviewed; Within Normal Limits Comment: Cat 1 , early decelerations, uc's q 2-3, last check 8cm VAGINAL EXAM Dilatation: 6 Effacement: 80 Station: -2 Contractions: irregular LAST VAGINAL EXAM-NURSING Nursing Exam Dilitation: 8.0 Nursing Exam Effacement: 90 Nursing Exam Station: -1 MEMBRANES Membranes: Ruptured FETUS A Decelerations: Early FHR Category: Category I : 39.6 Presentation: Vertex SIGNATURE SIGNATURE: [id number] Assignment: Teresa Carpenter MD Signature: with User ID: [email or web address] : with User ID: [email or web address]
[2019-11-08] MEDS ORDERED: ONDANSETRON HCL INJ/PF 4 MG/2 ML SDV ONE (15:07)
[2019-11-08] MEDS ORDERED: ONDANSETRON HCL INJ/PF 4 MG/2 ML SDV IV ONE (15:17)
[2019-11-08] MEDS ORDERED: DIPHENHYDRAMINE HCL 25 MG CAPSULE PO PRN (15:21)
[2019-11-08] MEDS ORDERED: MAGNESIUM HYDROXIDE SUSP 30 ML UDCUP PO PRN (15:21)
[2019-11-08] MEDS ORDERED: ACETAMINOPHEN WITH CODEINE #3 TABLET PO PRN (15:21)
[2019-11-08] MEDS ORDERED: PSEUDOEPHEDRINE HCL 30 MG TABLET PO PRN (15:21)
[2019-11-08] MEDS ORDERED: DIBUCAINE 1% OINTMENT 28 GM TP PRN (15:21)
[2019-11-08] MEDS ORDERED: PROMETHAZINE HCL INJ 25 MG/1 ML VIAL IV PRN (15:21)
[2019-11-08] MEDS ORDERED: PROMETHAZINE HCL 25 MG SUPP.RECT PR PRN (15:21)
[2019-11-08] MEDS ORDERED: GLYCERIN/WITCH HAZEL LEAF 1 EACH MED..WIPE TP PRN (15:21)
[2019-11-08] MEDS ORDERED: PROMETHAZINE HCL 25 MG TABLET PO PRN (15:21)
[2019-11-08] MEDS ORDERED: ACETAMINOPHEN 650 MG SUPP.RECT PR PRN (15:21)
[2019-11-08] MEDS ORDERED: DIPH/PERTUSS(ACELL)/TETANUS VAC/PF 0.5 ML SYR (>=10YO) IM PRN (15:21)
[2019-11-08] MEDS ORDERED: MEASLES,MUMPS&RUBELLA VACC/PF 0.5 ML VIAL SUBCUT PRN (15:21)
[2019-11-08] MEDS ORDERED: NA PHOS,M-B/NA PHOS,DI-BA (ADULT) 133 ML ENEMA PR PRN (15:21)
[2019-11-08] MEDS ORDERED: BENZOCAINE/MENTHOL AEROSOL SPRAY 56 ML TOP PRN (15:21)
[2019-11-08] MEDS ORDERED: IBUPROFEN 800 MG TABLET ONE (15:33)
--- NOTE | 2019-11-08 16:51 | Delivery Summary ---
Del Sum A-C Datetime Report Generated by CPN: 11/08/2019 16:51 DELIVERY PERSONNEL DELIVERY PERSONNEL: [id number] Nurse Lead Designer Certified:: Key Cornell CNM Labor and Delivery Nurse:: OPAL Sorensonub Tech/BUTTON MAKER: Gail Charles, JOINER APPRENTICE MATERNAL INFORMATION Delivery Anesthesia: Epidural Medications After Delivery: Pitocin 30 Units in 500ml NS/D5W Meds After Delivery Comment: 30 units Pitocin in 500mL NS open bolus x 200mLs then remainder @ 95mLs/hr Delivery QBL: 350 Provider Comments: viable female from SHAGGY to OA position, aftr delivery of head shoulders were trying to deliver but no uc, suprapubic pressure and pushing with delivery of infant, placed on mothers abd, cord clamped and cut by FOB after 2 minutes. spont delivery of grossly nl large placent, 3 VC, trailing membranes, uterus explored by Dr. Carpenter, lacerations repaired in normal fashion, cx intact, rectum patent, FFFM, pt vomiting, zofran 8 mg IVSP, dad holding bab and skin to skin LABOR SUMMARY EDC: 11/09/2019 00:00 No. Babies in Womb: 1 Attempted: No Labor Anesthesia: Epidural LABOR INFORMATION Reason for Induction: Maternal Diabetes; Polyhydramnios Onset of Labor: 11/08/2019 11:30 Complete Dilatation: 11/08/2019 13:24 Oxytocin: Induction Group B Beta Strep: negative Steroids Given: None Reason Steroids Not Administered: Not Applicable MEMBRANES Membranes Rupture Method: Artificial Rupture of Membranes: 11/08/2019 09:13 Length of Rupture (hr): 5.52 Amniotic Fluid Color: Clear Amniotic Fluid Amount: Large Amniotic Fluid Odor: Normal STAGES OF LABOR Stage 1 hr: 1 Stage 1 min: 54 Stage 2 hr: 1 Stage 2 min: 20 VAGINAL DELIVERY Episiotomy: None Laceration #1: Vaginal Laceration Extension #1: Second Degree Other Laceration: perineal Laceration Repair: Yes Laceration Repair Note: 2-0 chromic, vaginal and perineal, 2nd degree Sponge Count Correct: N/A Sharps Count Correct: N/A CSECTION DELIVERY Primary Indication: N/A Secondary Indication: N/A CSection Incidence: N/A Labor: N/A Elective: N/A CSection Incision: N/A BABY A INFORMATION Delivery Date/Time: 11/08/2019 14:44 Method of Delivery: Vaginal Nurse Controlled Delivery: No Born in Route : No : N/A Forceps: N/A Vacuum Extraction: N/A Shoulder Dystocia : No PRESENTATION/POSITION BABY A Presentation: Cephalic Cephalic Presentation: Vertex Vertex Position: Left Occipital Anterior Breech Presentation: N/A PLACENTA INFORMATION BABY A Placenta Method of Delivery: Spontaneous Placenta Status: Delivered SCORES BABY A Heart Rate 1 min: >100 bpm Resp Effort 1 min: Good Cry Reflex Irritability 1 min: Cough or Sneeze or Pulls Away Muscle Tone 1 min: Some Flexion of Extremities Color 1 min: Body [place], Extremities Blue Resuscitation Effort 1 min: Tactile Stimulation SCORE 1 MIN: 8 Heart Rate 5 min: >100 bpm Resp Effort 5 min: Good Cry Reflex Irritability 5 min: Cough or Sneeze or Pulls Away Muscle Tone 5 min: Active Motion Color 5 min: Body [place], Extremities Blue Resuscitation Effort 5 min: Tactile Stimulation SCORE 5 MIN: 9 INFORMATION BABY A Gestational Age at Delivery: 39.6 Gestational Status: Full Term- 39- 40.6 Weeks Outcome : Liveborn Condition : Stable (Annotations: Data stored by [facility] on behalf of user) Sex: Female IDENTIFICATION BABY A Verification Date/Time: 11/08/2019 15:50 ID Band Number: [id number] Mother's Name Verified: Yes RN Verifying Infant: Jovi DongOPAL Additional Verifying Personnel: Jarrett Reese RN WEIGHT/LENGTH BABY A Infant Birthweight (gm): 4014 Weight (lb): 8 Weight (oz): 14 Infant Length (in): 21.00 Infant Length (cm): 53.34 CORD INFORMATION BABY A No. Cord Vessels: 3 (Annotations: Data stored by [facility] on behalf of user) Nuchal Cord : N/A Cord Blood Taken: Yes-For Eval (Mom's Blood Type - or O+) Suction: None ASSESSMENT BABY A Respirations: Appears Normal Skin to Skin: Yes Rehab Office Coordinator/ALS Called : No Infant Care By: Jarrett Reese RN Transferred To: Remains with Mother BABY B INFORMATION : N/A
[2019-11-08] MEDS: DOCUSATE SODIUM 100 MG CAPSULE PO SCH (18:36)
[2019-11-08] MEDS: ACETAMINOPHEN WITH CODEINE #3 TABLET PO PRN (18:36)
[2019-11-08] MEDS: FERROUS SULFATE 325 MG TABLET PO SCH (18:36)
[2019-11-08] MEDS: FAMOTIDINE 20 MG TABLET PO SCH (22:17)
[2019-11-08] MEDS: IBUPROFEN 800 MG TABLET PO SCH (22:17)
[2019-11-09] MEDS: ACETAMINOPHEN WITH CODEINE #3 TABLET PO PRN ×3 (02:15→18:09)
[2019-11-09] MEDS: IBUPROFEN 800 MG TABLET PO SCH ×3 (05:56→21:07)
--- NOTE | 2019-11-09 08:26 | PDOC PROGRESS REPORT ---
Subjective-OB Progress Note for:: 11/09/19 Physical Exam (OB) Vital Signs: Temp Pulse Resp BP Pulse Ox 98.1 F 82 16 102/59 L 100 11/09/19 07:37 11/09/19 07:37 11/09/19 07:37 11/09/19 07:37 11/09/19 07:37 Intake & Output 11/08/19 11/09/19 11/10/19 06:59 06:59 06:59 Intake Total 1202 Output Total 1450 450 Balance -248 -450 Weight 92.6 kg - PIH/Pre-Eclampsia DTR's: 2 + Clonus: Negative Headache: Absent Epigastric Pain: No Visual Changes: No - Lochia Lochia Amount: Small 10-25 ml Lochia Color: Rubra/Red - Abdomen Description: Tender - Agustin catheter in place. Will remove this am and monitor output., Soft, Round Hernia Present: No Bowel Sounds: Normoactive Flatus Presence: Absent Stool: No Fundal Description: Firm, Midline Fundal Height: u/u - u/2 Objective-Diagnostic Laboratory: 11/08/19 07:39 11/08/19 11/08/19 06:50 07:39 Urine Color YELLOW Urine Appearance CLOUDY Urine pH 6.0 Ur Specific [place] 1.017 Urine Protein NEGATIVE Urine Glucose (UA) NEGATIVE Urine Ketones NEGATIVE Urine Blood NEGATIVE Urine Nitrite NEGATIVE Ur Leukocyte Esterase LARGE H Blood Type A NEGATIVE Antibody Screen NEGATIVE
[2019-11-09 08:57] LABS: HEMATOCRIT 29.9 % (36.0-47.0); HEMOGLOBIN 9.3 g/dL (12.0-15.5); MEAN CORPUSCULAR HEMOGLOBIN 22.8 pg (27.0-33.4); MEAN CORPUSCULAR HGB CONC 31.2 g/dL (32.0-36.0); MEAN CORPUSCULAR VOLUME 73 fl (80-97); PLATELET COUNT 158 10^3/uL (150-450); RED BLOOD COUNT 4.09 10^6/uL (3.72-5.28); RED CELL DISTRIBUTION WIDTH 15.9 % (11.5-14.0); WHITE BLOOD COUNT 15.7 10^3/uL (4.0-10.5)
[2019-11-09] MEDS: FAMOTIDINE 20 MG TABLET PO SCH ×2 (10:52→21:07)
[2019-11-09] MEDS: DOCUSATE SODIUM 100 MG CAPSULE PO SCH ×2 (10:52→18:09)
[2019-11-09] MEDS: PRENATAL VITAMIN W DHA CAPSULE PO SCH (10:52)
[2019-11-09] MEDS: SENNOSIDES/DOCUSATE 8.6-50 MG 1 EACH TABLET PO SCH (10:53)
[2019-11-09] MEDS: NITROFURANTOIN MONOHYD/M-CRYST 100 MG CAPSULE PO SCH ×2 (10:53→18:09)
[2019-11-09] MEDS: FERROUS SULFATE 325 MG TABLET PO SCH ×2 (10:53→18:09)
[2019-11-09] MEDS: ENOXAPARIN SODIUM INJ 40 MG/0.4 ML DISP.SYRIN SUBCUT SCH (10:53)
[2019-11-10] MEDS: ACETAMINOPHEN WITH CODEINE #3 TABLET PO PRN (02:33)
[2019-11-10] MEDS: IBUPROFEN 800 MG TABLET PO SCH ×2 (06:02→14:07)
--- NOTE | 2019-11-10 08:47 | PDOC PROGRESS REPORT ---
Subjective-OB Progress Note for:: 11/10/19 Subjective: Doing well, feeding baby, hsb at BS, perineum sore, voiding, ready to go home Physical Exam (OB) Vital Signs: Temp Pulse Resp BP Pulse Ox 98.5 F 82 16 110/62 97 11/10/19 07:18 11/10/19 07:18 11/10/19 07:18 11/10/19 07:18 11/10/19 07:18 Intake & Output 11/09/19 11/10/19 11/11/19 06:59 06:59 06:59 Intake Total 1202 300 Output Total 1450 1900 Balance -248 -1600 - PIH/Pre-Eclampsia DTR's: 2 + Clonus: Negative Headache: Absent Epigastric Pain: No Visual Changes: No - Lochia Lochia Amount: Scant < 10 ml Lochia Color: Rubra/Red - Abdomen Description: Tender, Soft Hernia Present: No Fundal Description: Firm, Midline Fundal Height: u/u - u/2 Objective-Diagnostic Laboratory: 11/09/19 08:31 11/09/19 11/09/19 08:31 08:31 WBC 15.7 H RBC 4.09 Hgb 9.3 L Hct 29.9 L MCV 73 L MCH 22.8 L MCHC 31.2 L RDW 15.9 H Plt Count 158 Blood Type A NEGATIVE Assessment and Plan(PN) - Assessment and Plan (1) Anemia Qualifiers: Anemia type: iron deficiency Is this a current diagnosis for this admission?: Yes (2) Factor 5 Leiden mutation, heterozygous Is this a current diagnosis for this admission?: Yes (3) Gestational diabetes mellitus (GDM) Qualifiers: Gestational diabetes mellitus control: oral hypoglycemic-controlled Trimester: second trimester Qualified Code(s): O24.415 - Gestational diabetes mellitus in , controlled by oral hypoglycemic drugs Is this a current diagnosis for this admission?: Yes (4) Delivery normal Is this a current diagnosis for this admission?: Yes (5) Encounter for induction of labor Is this a current diagnosis for this admission?: Yes (6) Polyhydramnios Qualifiers: Fetus number: single or unspecified fetus Trimester: third trimester Qualified Code(s): O40.3XX0 - Polyhydramnios, third trimester, not applicable or unspecified Is this a current diagnosis for this admission?: Yes - Time Spent with Patient Time with patient: Less than 15 minutes Medications reviewed and adjusted accordingly: Yes - Disposition Anticipated Discharge: Home Within: within 24 hours
--- NOTE | 2019-11-10 08:56 | PDOC DISCHARGE SUMMARY ---
Impression - Admit/DC Date/PCP Admission Date/Primary Care Provider: 11/08/19 06:34 JOHNATHAN DE LEON PA-C Discharge Date: 11/10/19 - Discharge Diagnosis (1) Anemia Is this a current diagnosis for this admission?: Yes (2) Factor 5 Leiden mutation, heterozygous Is this a current diagnosis for this admission?: Yes (3) Gestational diabetes mellitus (GDM) Is this a current diagnosis for this admission?: Yes (4) Delivery normal Is this a current diagnosis for this admission?: Yes (5) Encounter for induction of labor Is this a current diagnosis for this admission?: Yes (6) Polyhydramnios Is this a current diagnosis for this admission?: Yes - Additional Information Resuscitation Status: Full Code Discharge Diet: As Tolerated, Regular Discharge Activity: Activity As Tolerated, Pelvic Rest Referrals: JOHNATHAN DE LEON PA-C [Primary Care Provider] - (A 4 weeks) Prescriptions: Enoxaparin Sodium [Lovenox Inj 40 mg/0.4 ml Disp.syrin] 40 mg SUBCUT DAILY #30 disp.syrin Ibuprofen [Motrin 800 mg Tablet] 800 mg PO Q8 #60 tablet Home Medications: Vit/Iron Fum/Folic AC [ Tablet] 1 tab PO DAILY 10/22/17 Enoxaparin Sodium [Lovenox Inj 40 mg/0.4 ml Disp.syrin] 40 mg SUBCUT DAILY #30 disp.syrin 11/10/19 Ferrous Sulfate [Feosol 325 mg Tablet] 325 mg PO BID tablet 11/10/19 Ibuprofen [Motrin 800 mg Tablet] 800 mg PO Q8 #60 tablet 11/10/19 HPI Gestational Age: 39.6 Reason(s) for Admission: Induction of Labor, Gestional Diabetes Admission Note: polyhydramnios Procedures: Cerciage, Ultrasound Intrapartum Procedure(s): Spontaneous Vaginal Delivery Complication(s): Laceration-Vaginal, Laceration-Perineal Laceration-Degree: 2nd Hospital Course Hospital Course: routine, no complications, Results Laboratory Results: WBC 15.7 10^3/uL (4.0-10.5) H 11/09/19 08:31 RBC 4.09 10^6/uL (3.72-5.28) 11/09/19 08:31 Hgb 9.3 g/dL (12.0-15.5) L 11/09/19 08:31 Hct 29.9 % (36.0-47.0) L 11/09/19 08:31 MCV 73 fl (80-97) L 11/09/19 08:31 MCH 22.8 pg (27.0-33.4) L 11/09/19 08:31 MCHC 31.2 g/dL (32.0-36.0) L 11/09/19 08:31 RDW 15.9 % (11.5-14.0) H 11/09/19 08:31 Plt Count 158 10^3/uL (150-450) 11/09/19 08:31 Lymph % (Auto) 18.0 % (13-45) 11/08/19 07:39 [place] % (Auto) 5.3 % (3-13) 11/08/19 07:39 Eos % (Auto) 0.8 % (0-6) 11/08/19 07:39 Baso % (Auto) 0.4 % (0-2) 11/08/19 07:39 Absolute Neuts (auto) 7.4 10^3/uL (1.7-8.2) 11/08/19 07:39 Absolute Lymphs (auto) 1.8 10^3/uL (0.5-4.7) 11/08/19 07:39 Absolute Monos (auto) 0.5 10^3/uL (0.1-1.4) 11/08/19 07:39 Absolute Eos (auto) 0.1 10^3/uL (0.0-0.6) 11/08/19 07:39 Absolute Basos (auto) 0.0 10^3/uL (0.0-0.2) 11/08/19 07:39 Seg Neutrophils % 75.5 % (42-78) 11/08/19 07:39 Urine Color YELLOW 11/08/19 06:50 Urine Appearance CLOUDY 11/08/19 06:50 Urine pH 6.0 (5.0-9.0) 11/08/19 06:50 Ur Specific [place] 1.017 11/08/19 06:50 Urine Protein NEGATIVE mg/dL (NEGATIVE) 11/08/19 06:50 Urine Glucose (UA) NEGATIVE mg/dL (NEGATIVE) 11/08/19 06:50 Urine Ketones NEGATIVE mg/dL (NEGATIVE) 11/08/19 06:50 Urine Blood NEGATIVE (NEGATIVE) 11/08/19 06:50 Urine Nitrite NEGATIVE (NEGATIVE) 11/08/19 06:50 Urine Bilirubin NEGATIVE (NEGATIVE) 11/08/19 06:50 Urine Urobilinogen NEGATIVE mg/dL (<2.0) 11/08/19 06:50 Ur Leukocyte Esterase LARGE (NEGATIVE) H 11/08/19 06:50 Urine Ascorbic Acid NEGATIVE (NEGATIVE) 11/08/19 06:50 Urine Opiates Screen NEGATIVE 11/08/19 06:50 Urine Methadone Screen NEGATIVE 11/08/19 06:50 Ur Barbiturates Screen NEGATIVE 11/08/19 06:50 Ur Phencyclidine Scrn NEGATIVE 11/08/19 06:50 Ur Amphetamines Screen NEGATIVE 11/08/19 06:50 U Benzodiazepines Scrn NEGATIVE 11/08/19 06:50 Urine Cocaine Screen NEGATIVE 11/08/19 06:50 U Marijuana (THC) Screen NEGATIVE 11/08/19 06:50 RPR NONREACTIVE (NONREACTIVE) 11/08/19 07:39 Blood Type A NEGATIVE 11/09/19 08:31 Antibody Screen NEGATIVE 11/08/19 07:39 Screen NEGATIVE 11/09/19 08:31 Plan Health Concerns: Factor 5, on Lovenox for 4 weeks Plan of Treatment: discharge home, rev S&S to report Goals: no complications Time Spent: Less than 30 Minutes
[2019-11-10] MEDS: ENOXAPARIN SODIUM INJ 40 MG/0.4 ML DISP.SYRIN SUBCUT SCH (09:31)
[2019-11-10] MEDS: PRENATAL VITAMIN W DHA CAPSULE PO SCH (09:31)
[2019-11-10] MEDS: FERROUS SULFATE 325 MG TABLET PO SCH (09:31)
[2019-11-10] MEDS: NITROFURANTOIN MONOHYD/M-CRYST 100 MG CAPSULE PO SCH (09:31)
[2019-11-10] MEDS: DOCUSATE SODIUM 100 MG CAPSULE PO SCH (09:32)
[2019-11-10] MEDS: SENNOSIDES/DOCUSATE 8.6-50 MG 1 EACH TABLET PO SCH (09:33)
[2019-11-10] MEDS: FAMOTIDINE 20 MG TABLET PO SCH (09:33)
[2019-11-10 10:05] VITALS: BP 122/69
== END 2019-11-10 14:28 | disposition home or self-care (01) | DRG 806 ==
LOC: LR 06:34 → 2S 18:12
PROVIDERS: ADMIT Obstetrics & Gynecology; ATTEND Obstetrics & Gynecology
PROC: 10E0XZZ Delivery of Products of Conception, External Approach (ICD-10-PCS; principal; 2019-11-08)
PROC: 0KQM0ZZ Repair Perineum Muscle, Open Approach (ICD-10-PCS; 2019-11-08)
DX: O24.425 Gestational diabetes mellitus in childbirth, controlled by oral hypoglycemic drugs (principal); O99.12 Other diseases of the blood and blood-forming organs and certain disorders involving the immune mechanism complicating childbirth; Z37.0 Single live birth; D68.51 Activated protein C resistance; Z3A.39 39 weeks gestation of pregnancy; O70.1 Second degree perineal laceration during delivery; O40.3XX0 Polyhydramnios, third trimester, not applicable or unspecified; O99.02 Anemia complicating childbirth; D50.9 Iron deficiency anemia, unspecified; O76 Abnormality in fetal heart rate and rhythm complicating labor and delivery; O26.893 Other specified pregnancy related conditions, third trimester; Z67.11 Type A blood, Rh negative
CPT/HCPCS: 1967; 36415; 80307; 81005; 85025; 85027; 85461; 86592; 86850; 86900; 86901; C1758; J1650; J2405; J2590; J2790; J3010; J3490; J8499